=== PATIENT | female | born 1990 | race Two or more races ===

== ENCOUNTER 2021-11-24 20:17 | Emergency (ER) | payer OTHER ==
[2021-11-24 20:31] VITALS: BP 119/76; PULSE 98; TEMP 98.5; BMI 42.9
[2021-11-24] MEDS ORDERED: ONDANSETRON 4 MG/2 ML VIAL IVPUSH ONE (22:44)
[2021-11-24] MEDS ORDERED: FAMOTIDINE 20 MG/50 ML IVPB 20 MG/50 ML MG IVPB ONE (22:44)
[2021-11-24] MEDS ORDERED: ACETAMINOPHEN 1000 MG/100 ML BAG IVPB ONE (22:44)
[2021-11-24] MEDS ORDERED: SODIUM CHLORIDE 1,000 ML IV STA (22:44)
[2021-11-24] MEDS ORDERED: MAG HYDROX/AL HYDROX/SIMETH -MYLANTA- ORAL SUSPENSION PO ONE (22:45)
[2021-11-24] MEDS ORDERED: METOCLOPRAMIDE HCL INJECTION 10 MG/2 ML VIAL IVPUSH ONE (22:45)
[2021-11-24] MEDS ORDERED: METOCLOPRAMIDE HCL INJECTION 10 MG/2 ML VIAL ONE (23:31)
[2021-11-24] MEDS ORDERED: ACETAMINOPHEN INJECTION 100 ML IVPB ONE (23:31)
[2021-11-24] MEDS ORDERED: ONDANSETRON 4 MG/2 ML VIAL ONE (23:32)
[2021-11-24] MEDS ORDERED: MAG HYDROX/AL HYDROX/SIMETH 30 ML UNIT-DOSE CUP ONE (23:32)
[2021-11-24] MEDS ORDERED: FAMOTIDINE 10 MG/ML VIAL IVPB ONE (23:33)
[2021-11-25 00:21] LABS: BASO % 0.4 % (0-2.0); HEMATOCRIT 40.7 % (32.4-45.2); HEMOGLOBIN 13.7 GM/dL (10.7-15.3); MCH 27.5 pg (25.7-33.7); MCHC 33.6 g/dl (32.0-36.0); MEAN CELL VOLUME 81.9 fl (80-96); MONO % 9.6 % (3.8-10.2); PLATELET COUNT 271 10^3/uL (134-434); RBC 4.97 M/mm3 (3.60-5.2); RDW 12.5 % (11.6-15.6); WHITE BLOOD COUNT 7.7 K/mm3 (4.0-10.0)
[2021-11-25 00:38] LABS: CHLORIDE 101 mmol/L (98-107); SODIUM 136 mmol/L (136-145)
[2021-11-25 00:40] LABS: CALCIUM 9.2 mg/dL (8.5-10.1)
[2021-11-25 00:41] LABS: ALBUMIN 3.8 g/dl (3.4-5.0); ANION GAP 8 MMOL/L (8-16); BLOOD UREA NITROGEN 9.6 mg/dL (7-18); CO2 27 mmol/L (21-32); GLUCOSE,RANDOM 150 mg/dL (74-106); LIPASE 78 U/L (73-393)
[2021-11-25 00:44] LABS: CREATININE 0.8 mg/dL (0.55-1.3); SGOT/AST 23 U/L (15-37); SGPT/ALT 34 U/L (13-61)
[2021-11-25 00:45] LABS: BILIRUBIN,TOTAL 0.4 mg/dL (0.2-1); TOT PROT 8.1 g/dl (6.4-8.2)
[2021-11-25 00:47] LABS: ALK PHOS 59 U/L (45-117)
== END 2021-11-25 01:22 | disposition home or self-care (01) ==
LOC: JER 20:17
PROC: 3E0333Z Introduction of Anti-inflammatory into Peripheral Vein, Percutaneous Approach (ICD-10-PCS; principal; 2021-11-24)
PROC: 3E033GC Introduction of Other Therapeutic Substance into Peripheral Vein, Percutaneous Approach (ICD-10-PCS; 2021-11-24)
PROC: 3E033GC Introduction of Other Therapeutic Substance into Peripheral Vein, Percutaneous Approach (ICD-10-PCS; 2021-11-24)
PROC: 3E033GC Introduction of Other Therapeutic Substance into Peripheral Vein, Percutaneous Approach (ICD-10-PCS; 2021-11-24)
PROC: 3E0337Z Introduction of Electrolytic and Water Balance Substance into Peripheral Vein, Percutaneous Approach (ICD-10-PCS; 2021-11-24)
DX: R11.2 Nausea with vomiting, unspecified (principal)
CPT/HCPCS: 36415; 80053; 83690; 84702; 85025; 93005; 93010; 99284-25

== ENCOUNTER 2023-01-31 13:55 | Emergency (ER) | payer OTHER ==
[2023-01-31 13:59] VITALS: BP 119/83; PULSE 96; RESP 18; TEMP 98; BMI 43.9
[2023-01-31] MEDS ORDERED: ACETAMINOPHEN 500 MG TABLET (FP) PO ONE (14:46)
[2023-01-31] MEDS ORDERED: ACETAMINOPHEN 500 MG TABLET (FP) ONE (14:49)
== END 2023-01-31 15:54 | disposition home or self-care (01) ==
LOC: JERFT 13:55
DX: S93.401A Sprain of unspecified ligament of right ankle, initial encounter (principal); M25.571 Pain in right ankle and joints of right foot; R22.41 Localized swelling, mass and lump, right lower limb; X50.1XXA Overexertion from prolonged static or awkward postures, initial encounter
CPT/HCPCS: 73610-TC-RT-FY; 99283-25

== ENCOUNTER 2024-05-05 08:30 | Emergency (ER) | payer OTHER ==
[2024-05-05 08:42] VITALS: BP 125/92; PULSE 81; RESP 17; TEMP 98.2; BMI 44.6
[2024-05-05] MEDS ORDERED: ACETAMINOPHEN 500 MG TABLET (FP) ONE (08:58)
[2024-05-05] MEDS ORDERED: ALBUTEROL SO4 2.5/IPRATROPIUM 0.5 INH SOL 3 ML VIAL.NEB. NEB ONE (08:58)
[2024-05-05] MEDS: ALBUTEROL SO4 2.5/IPRATROPIUM 0.5 INH SOL 3 ML VIAL.NEB. NEB ONE (09:01)
[2024-05-05] MEDS: ACETAMINOPHEN 500 MG TABLET (FP) PO ONE (09:08)
[2024-05-06 00:28] LABS: HIV INTERPRETATION NEGATIVE (NEGATIVE)
== END 2024-05-05 09:48 | disposition home or self-care (01) ==
LOC: JERFT 08:30
PROC: 3E0F7GC Introduction of Other Therapeutic Substance into Respiratory Tract, Via Natural or Artificial Opening (ICD-10-PCS; principal; 2024-05-05)
DX: R05.9 Cough, unspecified (principal); J06.9 Acute upper respiratory infection, unspecified; R09.81 Nasal congestion; M79.10 Myalgia, unspecified site; R11.10 Vomiting, unspecified; R68.83 Chills (without fever); B97.4 Respiratory syncytial virus as the cause of diseases classified elsewhere; Z20.822 Contact with and (suspected) exposure to COVID-19
CPT/HCPCS: 0241U-QW; 36415; 71046-TC-FY; 86803; 87389; 99284-25